=== PATIENT | female | born 1950 | race American Indian/Alaskan Native ===

== ENCOUNTER 2017-03-16 09:18 | Day surgery (SDC) | payer MEDICARE, OTHER ==
[2014-10-04 00:53] VITALS: BMI 33.9
[2017-03-16] MEDS ORDERED: ceFAZolin IV 1 gm in Dextrose 1 GM/50 ML BAG IVPB ONE (10:00)
[2017-03-16] MEDS ORDERED: Iodixanol 320 MG/ML 200 ML BOTTLE IV ONE ×2 (10:00→12:34)
[2017-03-16] MEDS ORDERED: HEPARIN-NS 5,000 UNITS/500 ML 5,000 UNIT/500 ML BAG IV ONE ×2 (10:01→12:34)
[2017-03-16 10:12] LABS: CALCIUM 8.5 mg/dl (8.6-10.4); POTASSIUM 3.1 mmol/L (3.6-5.2)
[2017-03-16] MEDS ORDERED: Sodium Chloride 0.9% 500 ML IV ONE ×3 (10:54→14:29)
[2017-03-16] MEDS ORDERED: Midazolam 2 MG/2 ML VIAL ONE (11:04)
[2017-03-16] MEDS ORDERED: Propofol 10 mg/ml Inj (20 ML) ONE ×2 (11:04→12:12)
[2017-03-16] MEDS ORDERED: ePHEDrine 50 mg/ml Inj ONE (12:33)
--- NOTE | 2017-03-16 14:53 | PCM.SURG1 ---
Surgeon's Initial Post Op Note - Surgeon's Notes Surgeon: Barbara [employer] Instructor: Bradley PGY3 Type of Anesthesia: General Endo Pre-Operative Diagnosis: ESRD Operative Findings: see operative dicatation Post-Operative Diagnosis: same Operation Performed: TIA hybrid AVF Specimen/Specimens Removed: none Estimated Blood Loss: EBL {In ML}: 200 Blood Products Given: N/A Drains Used: No Drains Post-Op Condition: Good Date of Surgery/Procedure: 03/16/17 Time of Surgery/Procedure: 14:53
[2017-03-16 17:19] VITALS: RESP 16; TEMP 97.2
--- NOTE | 2017-03-16 17:31 | RAD ---
PROCEDURE: Intraoperative fluoroscopy HISTORY: RENAL FAILURE COMPARISON: Not available TECHNIQUE: Intraoperative fluoroscopy was provided for left upper extremity vascular stent plasty. Total time of fluoroscopy was 532.0 seconds. FINDINGS: Multiple fluoroscopic spot films are submitted. Films are on file for review. IMPRESSION: Fluoroscopy provided.
[2017-03-16 18:57] VITALS: BP 118/62; PULSE 97; O2SAT 98
--- NOTE | 2017-03-17 20:58 | OP ---
PROCEDURE DATE: 03/16/2017 PREOPERATIVE DIAGNOSIS: Renal failure. POSTOPERATIVE DIAGNOSIS: Renal failure. PROCEDURE CARRIED OUT: Hybrid AV shunt, left upper arm. SURGEON: Lior Jimenez Jr., MD [employer] APPRENTICE: Dr. Huerta. ANESTHESIOLOGIST: Lakesha Peck CRNA, and Sabrina Beach MD. INDICATIONS: The patient is a 66-year-old woman with renal insufficiency, who soon required dialysis. OPERATIVE FINDINGS: The patient's preoperative vein mapping did not demonstrate any veins on the surface of cephalic vein or basilic vein which was suitable for use as a fistula in either arm. Because of this, we initially pursued creation of hybrid shunt using a forearm loop graft. However, after we deployed the venous side of the graft and we dilated the 6-mm balloon just distal to the venous anastomosis, there was some extravasation. Because of this, we stopped this part of the procedure and then put in an upper arm hybrid graft. At the completion of that procedure, there was diminution of the thrill in the arm and because of this we took a separate venogram at the end which showed very poor central veins. Although the initial films done at the very beginning of the procedure should fairly good sized central veins. The completion films should very spasmodic without any evidence of clot in the central veins and just poor venous outflow for the entire situation. PROCEDURE: The patient was given general anesthesia and intravenous antibiotics. Using vein localization techniques and the arteries were identified and a forearm loop graft was begun. After we completed the venous anastomosis, we dilated the graft appropriately and above this there was an area of severe stenosis which we dilated. Subsequent to this extravasation so we stopped. We then switched this to an upper arm loop graft creating a new tunnel and an anastomosis to the large brachial vein in the axilla using a 6 mm by 9 mm graft. This worked quiet well and was in good apposition, but the central vein underneath the collar bone and in this region were very small and scattered without any evidence of clot. We then terminated the procedure after completion of the final angiogram and this showed good pulse of the wrist, flow trough the graft, and the procedure was terminated. Blood loss for the procedure was 200 mL. Operation carried out, hybrid shunt, left upper arm. Lior Jimenez Jr., MD CC: MD Dr. Syd Victoria
== END 2017-03-16 18:55 | disposition home or self-care (01) ==
LOC: C.SDS 09:18
PROVIDERS: ATTEND Surgery Vascular Surgery
DX: N18.6 End stage renal disease (principal)
CPT/HCPCS: 36415; 36830; 80048; C1725; C1769; C1894; J0690; J1644; J2250; J2270; J2405; J2704; J3010; J7030; J7040; Q9966